=== PATIENT | female | born 1955 | race American Indian/Alaskan Native ===

== ENCOUNTER 2021-10-06 09:23 | Emergency (ER) | payer BC, OTHER ==
[~2021-10-06] VITALS: Ht 167.6 cm; Wt 72.6 kg
[~2021-10-06 09:23] MED LIST: ASPIRIN EC81 MG PO; CALCIUM 500+D1 EACH PO
--- OUTSIDE RECORDS SUMMARY | 2021-10-06 09:26 | XMS ---
PreManage Notification: YESICA LANGLEY [employer] Events No recent Security Events currently on file CRITERIA MET - [facility] - 2 Visits in 30 Days CARE PROVIDERS There are no care providers on record at this time. Daryl has no Care Guidelines for this patient. [facility]12 MO.) [facility] NOTE: Visits indicate total known visits. ED[facility] VISIT TRACKING (12 MO.) [facility]21 09[facility] [place] [facility] COMPLAINT: - FLU SYMPTOMS 10/05/2021 15:19 [facility] [place] TYPE: Emergency COMPLAINT: - FLU SYMPTOMS INPATIENT VISIT TRACKING (12 MO.) No inpatient visits to display in this time frame [email or web address]
== END 2021-10-06 12:44 | disposition home or self-care (01) ==
LOC: ED 09:23
DX: U07.1 COVID-19 (principal); Z23 Encounter for immunization; F17.200 Nicotine dependence, unspecified, uncomplicated; Z88.5 Allergy status to narcotic agent; Z79.82 Long term (current) use of aspirin; Z79.899 Other long term (current) drug therapy
CPT/HCPCS: 99283-25; J7050; M0245